=== PATIENT | male | born 1965 | race African-American/Black ===

== ENCOUNTER 2017-08-05 08:42 | Outpatient (CLI) | payer MEDICARE ==
[2017-08-05] MEDS ORDERED: Sodium Chloride 0.9% 15 ML NEB ONE (17:09)
--- NOTE | 2017-08-05 21:50 | PRG ---
DATE OF SERVICE: 08/05/2017 CHIEF COMPLAINT: Ulceration of left foot. HISTORY OF PRESENT ILLNESS: This is a 51-year-old male who presents today for an ulcer on the left foot, which developed in April under the third metatarsal and has taken antibiotics but has not been on them for a while. He has changed the dressing type several times, most recently using a Triple Antibiotic ointment and gauze bandages. He states he has noticed some swelling, drainage and recently malodor. I saw him in my main clinic about 2 weeks ago, we took new x-rays which did not show any signs of osteomyelitis. He denies any nausea , vomiting, fevers or chills at this time. PAST MEDICAL HISTORY: 1. Diabetes. 2. Arthritis. 3. High blood pressure. 4. High cholesterol. PAST SURGICAL HISTORY: 1. Great toe amputation. 2. Bladder surgery. MEDICATIONS: 1. Insulin, regular. 2. Metformin. 3. Lisinopril. 4. Mobic. 5. Gabapentin. ALLERGIES: IODINE. SOCIAL HISTORY: Relates occasional tobacco use, alcohol use and caffeine use. No recreational or IV drug use. FAMILY HISTORY: Hypertension, stroke, diabetes, and kidney disease. REVIEW OF SYSTEMS: Constitutional: Does relate some recent weight loss. Denies nausea, vomiting, fevers or chills. Cardiovascular: Relates hypertension and swelling in the legs or ankles. Musculoskeletal: Relates tendonitis and weakness in limbs and joint pain. Psychiatric: Relates some anxiety. Integumentary: Relates cracking to the skin and open wound. PHYSICAL EXAMINATION: VITAL SIGNS: Temperature 98.3, pulse 85, respirations 19, blood pressure 178/ 92. Blood sugar was 281 this morning. GENERAL: The patient is alert and oriented x3, in no acute distress. He is well groomed in appearance, consistent with his age. VASCULAR: Dorsalis pedis, posterior tibial pulses are palpable bilaterally. Capillary refill time was immediate to the distal toes. No varicosities present to bilateral lower extremities. NEUROLOGICAL: Light touch and protective sensation is absent to bilateral lower extremities. MUSCULOSKELETAL: No gross deformities, muscle strength is 5/5 for dorsiflexion , plantar flexion, inversion and eversion. DERMATOLOGICAL: There is ulceration on the plantar aspect of the left foot under the second and third metatarsal head, which measures 1.7 cm x 2.2 cm x 0.4 cm. It has 100% granular wound base. There is moderate serosanguineous drainage coming from the wound. Wound does not probe to deeper tissues or bone. There is no malodor. No periwound erythema or warmth. ASSESSMENT: 1. Non-pressure chronic ulceration to the left foot with fat layer exposed. 2. Diabetes with peripheral neuropathy. PLAN: 1. Discussed with patient the treatment options. We will start him on routine debridements of the wound with daily Promogran dressing changes. He will apply Promogran, secondary dressing of gauze and tape. 2. Full thickness debridement of the subcutaneous tissue layer down to a bleeding granular base, removing biofilm, nonviable tissue as well as some of the periwound maceration utilizing a dermal curette, 15 blade and tissue nipper. 3. The patient will follow up with me in 1 week. VARGHESE
== END 2017-08-05 08:43 | disposition home or self-care (01) ==
LOC: WCC 08:42
PROVIDERS: ATTEND Podiatrist Foot & Ankle Surgery
DX: E11.621 Type 2 diabetes mellitus with foot ulcer (principal); E11.42 Type 2 diabetes mellitus with diabetic polyneuropathy; L97.422 Non-pressure chronic ulcer of left heel and midfoot with fat layer exposed
CPT/HCPCS: 11042; 82962; 97139; G0463; 36416; 99203; A4218

== ENCOUNTER 2017-08-12 08:56 | Outpatient (CLI) | payer MEDICARE ==
--- NOTE | 2017-08-12 10:08 | PRG ---
DATE OF SERVICE: 08/12/2017 SUBJECTIVE: This is a 51-year-old male returns today for followup of left plantar foot ulceration. He has been doing well since last visit, although he states he has been having issues keeping his b lood sugars under control, blood sugar today was 243. He states that he is doing everything that he is supposed to including eating right and taking his medications as prescribed. Denies any nausea, vomiting, fevers or chills. He has been doing daily dressing changes with the Promogran and MediPo rt Plus pad. PHYSICAL EXAMINATION: Ulceration to the left foot sub-third metatarsal head measures 1.9 cm x 1.5 x 0.3 cm, 100% granular wound base. No periwound erythema, edema or warmth. ASSESSMENT: Non-pressure chronic ulceration to left plantar forefoot, improved since last visit. PLAN: 1. Full thickness debridement of the subcutaneous tissue layers removing the nonviable tissues and biofilm from the wound base down to the subcutaneous tissue layer and a bleeding granular wound base . The patient tolerated the procedure well. 2. We will continue with daily Promogran dressing changes and secondary MediPort Plus pad. 3. The patient will follow up with me in 1 week.
[2017-08-12] MEDS ORDERED: Sodium Chloride 0.9% 15 ML NEB ONE (17:08)
== END 2017-08-12 08:57 | disposition home or self-care (01) ==
LOC: WCC 08:56
PROVIDERS: ATTEND Podiatrist Foot & Ankle Surgery
DX: L97.429 Non-pressure chronic ulcer of left heel and midfoot with unspecified severity (principal)
CPT/HCPCS: 11042; 36416; A4218

== ENCOUNTER 2017-08-19 09:41 | Outpatient (CLI) | payer MEDICARE ==
[2017-08-19] MEDS ORDERED: Sodium Chloride 0.9% 15 ML NEB ONE (10:57)
--- NOTE | 2017-08-19 11:11 | PRG ---
DATE OF SERVICE: 08/19/2017 SUBJECTIVE: This is a 51-year-old male returns today for followup left foot plantar ulceration. He has been doing well with dressing changes on his own. Denies any nausea, vomiting, fevers or chill s. PHYSICAL EXAMINATION: Ulceration, plantar left third metatarsal head measures 2 cm x 1.2 cm x 0.5 c m of depth. There is some periwound maceration and callus buildup. The wound base is 100% granular , no periwound erythema, edema or warmth. ASSESSMENT: 1. Non-pressure chronic ulceration to the left plantar forefoot. 2. Diabetes with peripheral neuropathy. PLAN: 1. Full thickness debridement of subcutaneous tissue layer, removing all nonviable tissues some mac eration from around the wound with a dermal curet and a 15 blade and tissue nipper down to a bleedin g granular wound base. 2. Because of maceration we are going to try and add some silver alginate to the wound, so Promogra n dressing with Aquacel AG and secondary gauze. He will change this daily and he will follow up javier ornelas in 1 week.
== END 2017-08-19 09:42 | disposition home or self-care (01) ==
LOC: WCC 09:41
PROVIDERS: ATTEND Podiatrist Foot & Ankle Surgery
DX: L97.429 Non-pressure chronic ulcer of left heel and midfoot with unspecified severity (principal); E11.42 Type 2 diabetes mellitus with diabetic polyneuropathy
CPT/HCPCS: 11042; 36416; A4218

== ENCOUNTER 2017-08-26 09:14 | Outpatient (CLI) | payer MEDICARE ==
--- NOTE | 2017-08-26 10:18 | PRG ---
DATE OF SERVICE: 08/26/2017 SUBJECTIVE: This is a 51-year-old male returns today for followup left foot plantar ulceration. He has been doing well since last visit and has been changing with Aquacel AG, Promogran, MediPort plus applied. He states that there has been less drainage. Denies nausea, vomiting, fevers or chills. PHYSICAL EXAMINATION: Wound to the left plantar forefoot measuring 1.6 cm x 1.1 cm x 0.3 cm of dept h, 100% granular wound base, some periwound hyperkeratosis and mild maceration. No periwound erythem a, edema or warmth. ASSESSMENT: 1. Non-pressure chronic ulceration to the plantar left foot, improving in size. 2. Diabetes with peripheral neuropathy. PLAN: 1. Full thickness debridement of the subcutaneous tissue layer utilizing dermal curet and 15 blade r emoving all nonviable tissue from the wound base including biofilm and periwound hyperkeratotic tissu e. 2. Reapplied Promogran, Aquacel AG, MediPort plus dressing. Will continue with these dressing amador es daily and have him follow up with us in 2 weeks.
== END 2017-08-26 09:15 | disposition home or self-care (01) ==
LOC: WCC 09:14
PROVIDERS: ATTEND Podiatrist Foot & Ankle Surgery
DX: E11.621 Type 2 diabetes mellitus with foot ulcer (principal); L97.529 Non-pressure chronic ulcer of other part of left foot with unspecified severity; E11.42 Type 2 diabetes mellitus with diabetic polyneuropathy

== ENCOUNTER 2017-09-09 09:37 | Outpatient (CLI) | payer MEDICARE ==
--- NOTE | 2017-09-10 09:37 | PRG ---
DATE OF SERVICE: 09/09/2017 SUBJECTIVE: This is a 51-year-old male returns today for followup left plantar foot ulceration, has been doing Promogran, Aquacel AG, MediPort pad, dressing changes and I think he has not seen much eliz richards in the wound. Denies any nausea, vomiting, fevers or chills. OBJECTIVE: Ulceration, plantar left forefoot measuring 2 cm x 1.9 cm x 0.6 cm of depth, 100% granula r wound base, periwound maceration and hyperkeratosis. No periwound erythema, edema or warmth. ASSESSMENT: 1. Non-pressure chronic ulceration to the left forefoot plantarly without significant improvement ov er the last several weeks. 2. Diabetes with peripheral neuropathy. PLAN: 1. Full thickness debridement of the subcutaneous tissue layer with dermal curet removing all hyperk eratosis from the periwound area and nonviable tissue and biofilm from within the wound base down to a bleeding granular wound base. Patient tolerated the procedure well. 2. We are going to continue with the Aquacel AG and Promogran dressing changes on a daily basis. 3. He was sent for an x-ray today since it has been almost a month since his last x-ray to rule out any osseous changes. 4. I gave him a prescription for the immobilization boot to help in offloading of the wound site and I believe, the pressure is probably playing the biggest role in keeping this from healing. 5. The patient will follow up with me in 1 week.
== END 2017-09-09 09:38 | disposition home or self-care (01) ==
LOC: WCC 09:37
PROVIDERS: ATTEND Podiatrist Foot & Ankle Surgery
DX: E11.621 Type 2 diabetes mellitus with foot ulcer (principal); L97.429 Non-pressure chronic ulcer of left heel and midfoot with unspecified severity
CPT/HCPCS: 36416

== ENCOUNTER 2017-09-09 10:47 | Outpatient (CLI) | payer MEDICARE ==
--- NOTE | 2017-09-09 13:09 | RAD ---
LEFT FOOT 3 VIEWS: HISTORY: Ulcer. COMPARISON: Foot radiograph 07/21/17. FINDINGS: Large ulcer of the medial forefoot. There are prior amputations of the great toe metatarsal diaphysi s as well as second metatarsophalangeal joint. Chronic degenerative changes of the mid foot and hind foot. No definite new erosion or periostitis compared to the comparison examination. IMPRESSION: 1. Large plantar and medial ulcer without new findings to suggest osteomyelitis, although MRI would be recommended if clinically warranted. 2. Chronic thickening of the diaphysis of the 2nd metatarsal suggests chronic reactive changes. No erosion. POS: SERGO
== END 2017-09-09 10:48 | disposition home or self-care (01) ==
LOC: RAD 10:47
PROVIDERS: ATTEND Podiatrist Foot & Ankle Surgery
DX: L97.529 Non-pressure chronic ulcer of other part of left foot with unspecified severity (principal)
CPT/HCPCS: 36416

== ENCOUNTER 2017-09-23 09:37 | Outpatient (CLI) | payer MEDICARE ==
--- NOTE | 2017-09-23 15:29 | PRG ---
DATE OF SERVICE: 09/23/2017 SUBJECTIVE: A 51-year-old male returns today for left plantar forefoot ulceration. Missed appointme nt last week, but has been doing dressing changes as ordered with Aquacel AG and Promogran. Patient denies nausea, vomiting, fevers or chills. PHYSICAL EXAMINATION: Ulceration of the plantar aspect of the left forefoot post-debridement measure s 1.1 cm x 1.2 cm x 0.5 cm of depth, 100% granular wound base and periwound hyperkeratosis. No periw ound erythema, edema or warmth. No drainage. It does not probe to bone. X-rays were reviewed, films taken last time. No new acute osseous or erosions or cortical irregulari ties or other signs of an acute osteomyelitis. ASSESSMENT: 1. Non-pressure chronic ulceration to the left forefoot. 2. Diabetes with peripheral neuropathy. PLAN: 1. Full thickness debridement of the subcutaneous tissue layer removing all nonviable tissues, biofi lm and periwound hyperkeratosis with 15 blade. 2. Going to continue with Aquacel AG and Promogran dressing changes on a daily basis. 3. Patient has not obtained the walking boot yet. He said that it is ordered and he will get into i t as soon as he can. 4. Going to do prior authorization for EpiFix skin substitute, possible application in next appoint ment, which will be in 2 weeks.
[2017-09-23] MEDS ORDERED: Sodium Chloride 0.9% 15 ML NEB ONE (21:16)
== END 2017-09-23 09:38 | disposition home or self-care (01) ==
LOC: WCC 09:37
PROVIDERS: ATTEND Podiatrist Foot & Ankle Surgery
DX: E11.621 Type 2 diabetes mellitus with foot ulcer (principal); L97.529 Non-pressure chronic ulcer of other part of left foot with unspecified severity; E11.41 Type 2 diabetes mellitus with diabetic mononeuropathy
CPT/HCPCS: 11042; 36416; A4218

== ENCOUNTER 2017-11-04 09:46 | Outpatient (CLI) | payer MEDICARE ==
--- NOTE | 2017-11-04 11:04 | PRG ---
DATE OF SERVICE: 11/04/2017 SUBJECTIVE: This is a 52-year-old male returns today for followup left plantar foot ulceration. He has not been seen in over a month. The patient has not obtained the boot as previously instructed. He has just been doing Aquacel AG dressing changes. He thinks that it is getting better. PHYSICAL EXAMINATION: Wound on the left plantar forefoot post-debridement measuring 1.0 cm x 1.1 cm x 0.7 cm of depth. It does not probe to bone. There is periwound maceration, there is a 100% granu lar wound base. No malodor. No periwound erythema, edema or warmth. ASSESSMENT: 1. Non-pressure chronic ulceration to left foot. 2. Diabetes with peripheral neuropathy. PLAN: 1. Full thickness debridement of subcutaneous tissue layer down to a bleeding granular wound base, r emoving all nonviable tissue, macerated tissue hyperkeratotic periwound area with 15 blade and curet. The patient tolerated the procedure well. 2. We were trying to get EpiFix approval skin substitute, going to check and see if this was ever ap proved. Possible application next week. 3. In the meantime continue Aquacel AG, gauze and Coban dressing changes and reiterated the importan ce of obtaining the offloading boot to help get this to heal. Follow up in 1 week.
[2017-11-04] MEDS ORDERED: Sodium Chloride 0.9% 15 ML NEB ONE (15:43)
== END 2017-11-04 09:47 | disposition home or self-care (01) ==
LOC: WCC 09:46
PROVIDERS: ATTEND Family Medicine
DX: E11.621 Type 2 diabetes mellitus with foot ulcer (principal); L97.529 Non-pressure chronic ulcer of other part of left foot with unspecified severity; E11.42 Type 2 diabetes mellitus with diabetic polyneuropathy
CPT/HCPCS: 36416; A4218

== ENCOUNTER 2017-11-11 08:59 | Outpatient (CLI) | payer MEDICARE ==
--- NOTE | 2017-11-11 11:35 | PRG ---
DATE OF SERVICE: 11/11/2017 SUBJECTIVE: This is a 52-year-old male returns today for followup left plantar forefoot ulceration. The patient has been doing well with Aquacel AG dressing changes daily. Denies any changes since la st visit. Denies nausea, vomiting, fevers or chills. PHYSICAL EXAMINATION: Ulceration, left plantar forefoot measuring 1.9 cm x 1.0 cm x 0.4 cm, 100% gra nular wound base, some slight periwound maceration. Does not probe to tendon or bone. ASSESSMENT: 1. Non-pressure chronic ulceration to the left plantar forefoot. 2. Diabetes with peripheral neuropathy. PLAN: 1. Full thickness debridement of the wound and periwound hyperkeratosis removing all nonviable tissu e from the wound base including biofilm down to a bleeding granular wound base. 2. The first application of EpiFix 18 mm disk was applied to the wound base and secured with nonadhe rent Adaptic touch dressing and then secondary dressing of Allevyn foam and Coban. The patient luisa ated the procedure well. The EpiFix graft was PAUL # expiration and order number documented in the ti ssue log. The patient will leave this dressing in place for 1 week and follow up with me in 1 week.
[2017-11-14] MEDS ORDERED: Sodium Chloride 0.9% 15 ML NEB ONE (15:12)
== END 2017-11-11 09:00 | disposition home or self-care (01) ==
LOC: WCC 08:59
PROVIDERS: ATTEND Podiatrist Foot & Ankle Surgery
DX: E11.621 Type 2 diabetes mellitus with foot ulcer (principal); L97.429 Non-pressure chronic ulcer of left heel and midfoot with unspecified severity; E11.42 Type 2 diabetes mellitus with diabetic polyneuropathy
CPT/HCPCS: 36416; C9363-KX-JC

== ENCOUNTER 2017-11-18 09:14 | Outpatient (CLI) | payer MEDICARE ==
--- NOTE | 2017-11-18 11:59 | PRG ---
DATE OF SERVICE: 11/18/2017 SUBJECTIVE: A 52-year-old male returns today for followup left plantar forefoot ulceration, doing we ll since last visit and has kept dressing in place. We had his first application of EpiFix last time . Denies any nausea, vomiting, fevers, or chills. OBJECTIVE: Ulceration on the left plantar forefoot measuring 0.7 cm x 0.6 cm x 0.3 cm of depth, 100% granular wound base, mild periwound maceration. No drainage. Does not probe to tendon or bone. No periwound erythema, edema or warmth. ASSESSMENT: 1. Non-pressure chronic ulceration to left plantar forefoot, improving with EpiFix applications. 2. Diabetes with peripheral neuropathy. PLAN: Second application of EpiFix was performed, 18 mm disk to the wound base after a full thicknes s debridement of the wound. Secondary dressing including Adaptic, Allevyn padding, and Coban was anayeli lied. The patient will leave dressing in place for 1 week and he will follow up with me in 1 week. The EpiFix lot number and expiration date were documented in the tissue log.
[2017-11-18] MEDS ORDERED: Sodium Chloride 0.9% 15 ML NEB ONE (16:36)
== END 2017-11-18 09:15 | disposition home or self-care (01) ==
LOC: WCC 09:14
PROVIDERS: ATTEND Podiatrist Foot & Ankle Surgery
DX: E11.621 Type 2 diabetes mellitus with foot ulcer (principal); L97.529 Non-pressure chronic ulcer of other part of left foot with unspecified severity; E11.42 Type 2 diabetes mellitus with diabetic polyneuropathy
CPT/HCPCS: 82962; C9363; 36416; A4218

== ENCOUNTER 2017-11-25 08:46 | Outpatient (CLI) | payer MEDICARE ==
[2017-11-25] MEDS ORDERED: Sodium Chloride 0.9% 15 ML NEB ONE (11:11)
--- NOTE | 2017-11-25 11:34 | PRG ---
DATE OF SERVICE: 11/25/2017 SUBJECTIVE: This is a 52-year-old male returns today for left plantar forefoot ulceration, doing wel l since last visit. He has kept dressing in place since that time, no problems. Denies nausea, vomi ting, fevers or chills. PHYSICAL EXAMINATION: Ulceration to the left plantar forefoot measuring 0.6 cm x 0.6 cm x 5.5 cm of depth, 100% granular tissue. The wound base, some mild periwound maceration. No periwound erythema , edema or warmth. ASSESSMENT: 1. Non-pressure chronic ulceration to the left plantar forefoot. 2. Diabetes with peripheral neuropathy. PLAN: 1. Full thickness debridement of the subcutaneous tissue layers, removing all nonviable tissue and b iofilm down to a bleeding granular wound base. Application of Epifix 18 mm disk was applied. Expira tion date, lot number and order number were logged in the tissue log. 2. Going to leave the secondary dressing of Adaptic foam and Coban wrap in place until next visit. In 1 week he can remove this and start daily Promogran dressing changes and then he will follow up wi th me in 2 weeks.
== END 2017-11-25 08:47 | disposition home or self-care (01) ==
LOC: WCC 08:46
PROVIDERS: ATTEND Podiatrist Foot & Ankle Surgery
DX: E11.621 Type 2 diabetes mellitus with foot ulcer (principal); E11.42 Type 2 diabetes mellitus with diabetic polyneuropathy; L97.429 Non-pressure chronic ulcer of left heel and midfoot with unspecified severity
CPT/HCPCS: 82962; C9363; 36416; A4218

== ENCOUNTER 2017-12-09 09:16 | Outpatient (CLI) | payer MEDICARE ==
--- NOTE | 2017-12-09 11:50 | PRG ---
DATE OF SERVICE: 12/09/2017 SUBJECTIVE: A 52-year-old male returns today for left foot plantar ulceration, has been doing Promog ran dressing changes over the last week and had EpiFix dressing applied 2 weeks ago, has been doing w ell. Denies any problems since last visit. Denies nausea, vomiting, fevers or chills. OBJECTIVE: Ulceration persists on the left plantar foot measures 0.6 x 0.4 cm x 0.3 cm of depth. Th ere is some slight maceration around the border and some hyperkeratotic buildup. Wound does not prob e to deeper tissues or bone. ASSESSMENT: 1. Non-pressure chronic ulceration to the left plantar forefoot. 2. Diabetes with peripheral neuropathy. PLAN: 1. Full thickness debridement of the wound down to bleeding granular wound base, removing all periwo und hyperkeratosis and maceration and biofilm within the wound base. An application of an 18 mm disk of EpiFix was applied. The lot no and expiration date are documented in the tissue log. 2. Secondary dressing applied including Adaptic, gauze, Georgiana, Kerlix, and Coban. This dressing vicente l be left in place for 1 week and he will follow up with me in 1 week.
== END 2017-12-09 09:17 | disposition home or self-care (01) ==
LOC: WCC 09:16
PROVIDERS: ATTEND Podiatrist Foot & Ankle Surgery
DX: E11.621 Type 2 diabetes mellitus with foot ulcer (principal); E11.42 Type 2 diabetes mellitus with diabetic polyneuropathy; L97.529 Non-pressure chronic ulcer of other part of left foot with unspecified severity
CPT/HCPCS: 82962; C9363; 36416

== ENCOUNTER 2017-12-30 10:08 | Outpatient (CLI) | payer MEDICARE ==
--- NOTE | 2017-12-30 11:41 | PRG ---
DATE OF SERVICE: 12/30/2017 SUBJECTIVE: This is a 52-year-old male returns today for followup left plantar foot ulceration. He has missed his last 2 appointments over the last 2 weeks since I have not him in almost a month. He says he has just been dressing it with a gauze and tape. Denies any nausea, vomiting, fevers or chills. States that he has lost the order that I gave him in order to obtain an offloading boot and never got the boot. PHYSICAL EXAMINATION: Ulceration left plantar foot has increased in size and depth. It is measuring 1.4 cm x 0.6 cm x 1.1 cm with 0.5 cm of undermining the full circumference of the wound. It has 80% granular tissue and 20% slough. There is also periwound maceration. No periwound erythema, edema or warmth. ASSESSMENT: 1. Non-pressure chronic ulceration to left plantar forefoot. 2. Diabetes with peripheral neuropathy. 3. Patient noncompliance. PLAN: 1. Full thickness debridement of the subcutaneous tissue layer removed all undermining tissue, nonviable tissue from the wound base and biofilm with dermal curet and 15 blade down to a bleeding granular wound base. Hemostasis achieved with silver nitrate and pressure. 2. Going to do Aquacel AG dressing changes on a daily basis. 3. I gave him a new prescription for an immobilization cam walker boot in order to help offload this area. 4. I stressed with the patient the need for compliance and to make his weekly appointments for routine debridements and use the dressing materials that I am recommending. 5. The patient will follow up with me in 2 weeks. VARGHESE
== END 2017-12-30 10:09 | disposition home or self-care (01) ==
LOC: WCC 10:08
PROVIDERS: ATTEND Podiatrist Foot & Ankle Surgery
DX: E11.621 Type 2 diabetes mellitus with foot ulcer (principal); E11.42 Type 2 diabetes mellitus with diabetic polyneuropathy; L97.429 Non-pressure chronic ulcer of left heel and midfoot with unspecified severity
CPT/HCPCS: 11042

== ENCOUNTER 2018-01-20 11:03 | Outpatient (CLI) | payer MEDICARE ==
--- NOTE | 2018-01-20 13:21 | PRG ---
DATE OF SERVICE: 01/20/2018 SUBJECTIVE: A 52-year-old male returns today for followup left plantar forefoot ulceration. Again, he misses appointment last week. Has not obtained the CAM walker boot for offloading purposes yet. He says he has been doing daily dressing changes with the Aquacel AG. OBJECTIVE: Ulceration to the left plantar forefoot measuring 1.1 cm x 1.0 cm x 0.6 cm, has 100% gran ular wound base. There is maceration on the periwound area as well as hyperkeratotic buildup. Wound does not probe to bone or tendon. No periwound erythema, edema or warmth. ASSESSMENT: 1. Non-pressure chronic ulceration to the left plantar forefoot. 2. Diabetes with peripheral neuropathy. 3. The patient noncompliance. PLAN: 1. Full thickness debridement of subcutaneous tissue layer, removing all nonviable tissue and biofil m from the wound base, removed a significant amount of the macerated tissue and hyperkeratosis from t he periwound area with 15 blade and dermal curette. 2. Stress the importance of proper offloading with the patient and urged him to go and get the CAM w alker boot. 3. Continue with daily Aquacel AG dressing changes and the patient is to follow up with me in 1 week .
== END 2018-01-20 11:04 | disposition home or self-care (01) ==
LOC: WCC 11:03
PROVIDERS: ATTEND Family Medicine
DX: E11.621 Type 2 diabetes mellitus with foot ulcer (principal); L97.429 Non-pressure chronic ulcer of left heel and midfoot with unspecified severity; E11.42 Type 2 diabetes mellitus with diabetic polyneuropathy
CPT/HCPCS: 11042; 36416

== ENCOUNTER 2018-01-27 09:00 | Outpatient (CLI) | payer MEDICARE ==
--- NOTE | 2018-01-27 10:01 | PRG ---
DATE OF SERVICE: 01/27/2018 SUBJECTIVE: This is a 52-year-old male who returns today for followup left plantar forefoot ulcerati on. He states he has attempted to get the immobilization boot again and they told him that his insur lance would not cover it and cannot afford it. Denies any nausea, vomiting, fevers or chills. No iss ues with dressing changes over the last week, has been doing Aquacel AG, gauze and tape dressings. PHYSICAL EXAMINATION: Ulceration of left plantar forefoot mildly larger 1.2 cm x 1.2 cm x 0.4 cm, 50 % slough, 50% granulation tissue. No periwound erythema, edema or warmth. There is some maceration within the wound edges. Wound does not probe to bone. ASSESSMENT: 1. Non-pressure chronic ulceration to the left plantar forefoot. 2. Diabetes with peripheral neuropathy. PLAN: 1. Full thickness debridement of the subcutaneous tissue layer removing all nonviable tissue, biofil m and macerated tissue from the wound edges with a 15 blade and dermal curette. The patient tolerate d the procedure well. 2. I am going to continue with Aquacel AG dressing changes. 3. The patient needs better offloading to this wound site. I am recommending a total contact cast, which we do not have access to currently [facility], but we are getting it soon. If he agrees to do the casting now, I will move him to main clinic where I can do the casting or if w xin get the cast available to us here at the wound clinic, then we will begin that here. He will follo w up with me in 1 week.
== END 2018-01-27 09:01 | disposition home or self-care (01) ==
LOC: WCC 09:00
PROVIDERS: ATTEND Podiatrist Foot & Ankle Surgery
DX: E11.621 Type 2 diabetes mellitus with foot ulcer (principal); E11.42 Type 2 diabetes mellitus with diabetic polyneuropathy; L97.429 Non-pressure chronic ulcer of left heel and midfoot with unspecified severity
CPT/HCPCS: 11042; 36416

== ENCOUNTER 2018-02-03 09:44 | Outpatient (CLI) | payer MEDICARE ==
--- NOTE | 2018-02-03 13:46 | PRG ---
DATE OF SERVICE: 02/03/2018 SUBJECTIVE: This is a 52-year-old male returns today for followup left forefoot sub third mid head u lceration, has been doing well since last visit. Using the Silvercel dressing changes, 4 x 4, and Co ban. Still no update on the boot. He has been trying to get from the medical supply store, has cons idered the cast but he is not ready to pursue this either. Denies nausea, vomiting, fevers or chills . OBJECTIVE: Ulceration to the left plantar forefoot measuring 1.5 cm x 1.5 cm x 0.8 cm of depth. The re is 100% granular wound base. No periwound erythema, edema or warmth. ASSESSMENT: 1. Non-pressure chronic ulceration to the left forefoot. 2. Diabetes with peripheral neuropathy. PLAN: 1. Full thickness debridement of the subcutaneous tissue layer of the wound down to a bleeding granu lar wound base, removing all nonviable tissue and biofilm. The patient tolerated the procedure well. 2. Going to continue with Silvercel dressing changes on a daily basis. He is going to continue to t ry to get the boot. I instructed him of some other medical supply stores because the one he has gone to seems to be confused on it what exactly it is that I have been ordering. He will try one of thes e other shop to see if he can get the boot and bring it with him to the next appointment, so that I c an modify to offload the wound site. 3. The patient will follow up with me in 1 week.
== END 2018-02-03 09:45 | disposition home or self-care (01) ==
LOC: WCC 09:44
PROVIDERS: ATTEND Podiatrist Foot & Ankle Surgery
DX: E11.621 Type 2 diabetes mellitus with foot ulcer (principal); L97.529 Non-pressure chronic ulcer of other part of left foot with unspecified severity; E11.42 Type 2 diabetes mellitus with diabetic polyneuropathy
CPT/HCPCS: 36416

== ENCOUNTER 2018-02-10 09:50 | Outpatient (CLI) | payer MEDICARE ==
--- NOTE | 2018-02-10 10:16 | PRG ---
DATE OF SERVICE: 02/10/2018 SUBJECTIVE: This is a 52-year-old male returns today for followup left plantar forefoot ulceration. He did receive a walking cast boot yesterday and brought it with him today to have it fitted and acc ommodated. Denies any problems with it last week with the dressing changes. Denies nausea, vomiting , fevers or chills. PHYSICAL EXAMINATION: Left plantar forefoot ulceration measuring 1.5 cm x 1.4 cm x 0.5 cm. There is some undermining from 1 o'clock to 6 o'clock of approximately 0.5 cm. The wound is 70% granulation t issue with 30% centralized fibrous plug, some slight periwound maceration. No periwound erythema, ed paty or warmth. ASSESSMENT: 1. Non-pressure chronic ulceration to the left plantar forefoot. 2. Diabetes with peripheral neuropathy. PLAN: 1. Full thickness debridement of subcutaneous tissue layer removing all nonviable tissue and biofilm from the wound base with dermal curet 15 blade and tissue nipper. We removed the undermining tissue down to a bleeding granular wound base. 2. We are going to continue with daily Aquacel AG dressing changes, gauze and Coban. 3. We are going to fit him with the boot today and accommodate with removable plugs on the plantar i nsert to offload the wound site. The patient to wear this at all times when standing or walking, can remove to sleep and shower. He will follow up with me in 1 week.
[2018-02-14] MEDS ORDERED: Sodium Chloride 0.9% 15 ML NEB ONE (17:46)
== END 2018-02-10 09:51 | disposition home or self-care (01) ==
LOC: WCC 09:50
PROVIDERS: ATTEND Family Medicine
DX: E11.621 Type 2 diabetes mellitus with foot ulcer (principal); L97.429 Non-pressure chronic ulcer of left heel and midfoot with unspecified severity; E11.42 Type 2 diabetes mellitus with diabetic polyneuropathy
CPT/HCPCS: 11042; 36416

== ENCOUNTER 2018-02-17 09:00 | Outpatient (CLI) | payer MEDICARE ==
--- NOTE | 2018-02-17 11:38 | PRG ---
DATE OF SERVICE: 02/17/2018 SUBJECTIVE: This is a 52-year-old male returns today for followup left plantar forefoot ulceration. He states he has done well this last week wearing the offloading boot at all times. He has continue d with his daily Aquacel AG dressing changes. Denies any nausea, vomiting, fevers or chills. PHYSICAL EXAMINATION: Left plantar forefoot ulceration measures 1.5 cm x 1.4 cm x 0.4 cm of depth, 9 0% granulation tissue, 10% slough. Some minimal periwound hyperkeratosis. No periwound erythema, ed paty or warmth. ASSESSMENT: 1. 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 2. Diabetes with peripheral neuropathy. PLAN: 1. Full thickness debridement of subcutaneous tissue layer removing all nonviable tissue and biofilm from the wound down to a bleeding granular wound base with dermal curette. Hyperkeratotic tissue wa s removed from the periwound area with 15 blade scalpel. The patient tolerated the procedure well. 2. We are going to continue with Aquacel AG dressing changes and offloading boot at all times. He w ill follow up with me in 1 week.
== END 2018-02-17 09:01 | disposition home or self-care (01) ==
LOC: WCC 09:00
PROVIDERS: ATTEND Podiatrist Foot & Ankle Surgery
DX: E11.621 Type 2 diabetes mellitus with foot ulcer (principal); L97.429 Non-pressure chronic ulcer of left heel and midfoot with unspecified severity; E11.42 Type 2 diabetes mellitus with diabetic polyneuropathy
CPT/HCPCS: 36416

== ENCOUNTER 2018-02-24 10:58 | Outpatient (CLI) | payer MEDICARE ==
--- NOTE | 2018-02-24 14:48 | PRG ---
DATE OF SERVICE: 02/24/2018 SUBJECTIVE: A 52-year-old male returns today for followup of left plantar forefoot ulceration, has b een using Aquacel AG and offloading boot, it has been difficult, but he has been wearing the boot at all times. Denies nausea, vomiting, fevers, chills. PHYSICAL EXAMINATION: Ulceration to the plantar aspect of the left forefoot measuring 1.7 x 1.2 x 0. 8 cm. There is undermining the complete circumference about 0.8 cm 70% granulation tissue, 30% sloug h in the wound base. Wound . No periwound erythema, edema or warmth. ASSESSMENT: 1. Non-pressure chronic ulceration to the left forefoot. 2. Diabetes with peripheral neuropathy. PLAN: 1. Full thickness debridement of subcutaneous tissue layers removing all nonviable tissues and biofi lm from the wound base down to a bleeding granular wound base. The patient tolerated the procedure w ell. 2. Patient's wound has gotten larger over this last week, uncertain to his level of compliance, but this may also just be in need of a more drastic offloading treatment. I discussed with the patient d ifferent options including metatarsal head resection and total contact casting, I think either of the se would work in order to offload the wound enough for to heal. He will consider options and let me know next week. We will continue with Aquacel AG dressing changes until that time, an offloading billy t at all times. The patient will follow up with me in 1 week.
== END 2018-02-24 10:59 | disposition home or self-care (01) ==
LOC: WCC 10:58
PROVIDERS: ATTEND Family Medicine
DX: E11.621 Type 2 diabetes mellitus with foot ulcer (principal); E11.42 Type 2 diabetes mellitus with diabetic polyneuropathy; L97.529 Non-pressure chronic ulcer of other part of left foot with unspecified severity
CPT/HCPCS: 36416